=== PATIENT | male | born 1945 | race Caucasian/White ===

== ENCOUNTER → 2017-07-02 | Outpatient (CLI) | payer OTHER | LOC: BMCIMAGING 13:51 | PROVIDERS: ATTEND Physician Assistant Medical | DX: Z13.820 Encounter for screening for osteoporosis (principal); M85.80 Other specified disorders of bone density and structure, unspecified site; I65.23 Occlusion and stenosis of bilateral carotid arteries ==

== ENCOUNTER → 2017-07-15 | Outpatient (CLI) | payer OTHER ==
[~2017-07-15] MED LIST: IOPAMIDOL (ISOVUE 370) 100 ML BTL IV ONE
== END ==
LOC: FIMAGING 14:43
PROVIDERS: ATTEND Physician Assistant Medical
DX: I77.9 Disorder of arteries and arterioles, unspecified (principal); M50.30 Other cervical disc degeneration, unspecified cervical region
CPT/HCPCS: Q9967

== ENCOUNTER → 2017-10-27 | Outpatient (CLI) | payer OTHER ==
[~2017-10-27] MED LIST changes: -IOPAMIDOL (ISOVUE 370) 100 ML BTL IV ONE; +LIDOCAINE 1% 300 MG/30 ML SDV ONE
[2017-10-27 11:14] LABS: PROTEIN, CSF 57 mg/dL (12-60)
[2017-10-27 11:25] LABS: CSF APPEARANCE CLEAR (CLEAR); CSF COLOR COLORLESS (COLORLESS); WBC, CSF 0 /mm3 (0-5)
[2017-10-27 11:38] LABS: CSF APPEARANCE CLEAR (CLEAR); CSF COLOR COLORLESS (COLORLESS); WBC, CSF 0 /mm3 (0-5)
[2017-10-29 00:05] LABS: HSV 1 PCR, CSF Negative (Negative); HSV 2 PCR, CSF Negative (Negative)
[2017-10-29 15:31] LABS: VDRL CSF Negative (Negative)
[2017-10-30 13:15] LABS: INTERPRETATION 0 bands (<4); OLIGOCLONAL BANDING CSF 3 bands; OLIGOCLONAL BANDING SERUM 3 bands
[2017-11-01 12:22] LABS: ALBUMIN CSF 34.1 mg/dL (<=27.0); ALBUMIN SERUM 4900 mg/dL; CSF IGG INDEX 0.46 (<=0.85); IGG CSF 4.1 mg/dL (<=8.1); IGG SERUM 1250 mg/dL (767 - 1590); IGG/ALBUMIN CSF 0.12 (<=0.21); IGG/ALBUMIN SERUM 0.26 (<=0.40)
== END ==
LOC: FIMAGING 08:35
PROVIDERS: ATTEND Psychiatry & Neurology Neurology
PROC: 009U3ZX Drainage of Spinal Canal, Percutaneous Approach, Diagnostic (ICD-10-PCS; principal; 2017-10-27)
DX: R41.3 Other amnesia (principal); H53.9 Unspecified visual disturbance
CPT/HCPCS: 82784-90; 83916-90; 86592-90; 86735-90; 86765-90; 86787-90

== ENCOUNTER → 2017-11-17 | Outpatient (CLI) | payer OTHER ==
--- NOTE | 2017-11-19 15:28 | CPEEG ---
[f rep st] ELECTROENCEPHALOGRAM DATE OF STUDY: 11/17/2017 DATE OF INTERPRETATION: 11/19/2017. DATE OF STUDY: 11/17/2017. INTERPRETATION: Normal EEG during wakefulness and sleep. There were no potentially epileptogenic ab normalities present in the recording. REPORT: This EEG contains 9-10 Hz alpha activity over the posterior head regions. The background ac tivity was normal and symmetric. There was no abnormal activation at rest, during photic stimulation or hyperventilation. The patient became drowsy and fell asleep during the study. There was no abno rmal activation during drowsiness, sleep, or during times of arousal. /[id number]/MODL
== END ==
LOC: FCPNEURO 12:39
PROVIDERS: ATTEND Psychiatry & Neurology Neurology
DX: R41.3 Other amnesia (principal)

== ENCOUNTER → 2018-08-05 | Outpatient (CLI) | payer OTHER | LOC: FCPNEURO 20:00 | PROVIDERS: ATTEND Psychiatry & Neurology Sleep Medicine | DX: G47.31 Primary central sleep apnea (principal); G47.33 Obstructive sleep apnea (adult) (pediatric) ==

== ENCOUNTER 2018-09-22 06:10 | Emergency (ER) | payer OTHER ==
[2018-09-22 06:39] LABS: PLATELET COUNT 305 10^3/uL (150-400)
--- NOTE | 2018-09-22 06:39 | EDPHY ---
H & P Stated Complaint: AMS, , CONFUSED, STROKE HX Time Seen by Provider: 09/22/18 06:25 HPI/ROS: Chief Complaint: Confusion HPI: 73-year-old male with a history of a possible stroke a year and a half ago woke this morning and per his seemed very confused. They are in the process of working on changing his oxygen supplementation at night because he has a history of sleep apnea and has had documented hypoxia sleep studies. Patient has had multiple MRIs and scans which have not definitively showed evidence of stroke. The symptoms that he had in 2017 were and expressive aphasia in the morning. His physicians have attributed this to possible hypoxemia. This morning when he woke up he did not get of bed as usual. When his spoke with him he seemed confused. He did not have confused words as he has in the past. His states that he now seems improved. At baseline he is often not oriented to time. He did denies recent illness. No fevers or chills. He is awake alert and answering my questions. No chest pain. No shortness of breath. No fevers or chills. No cough. No nausea or vomiting. ROS: 10 systems were reviewed and were negative except those elements noted in the HPI. PMH: Possible CPA Social History: No smoking, no alcohol, no recreational drug use Family History: non-contributory Physical Exam: Gen: Awake, Alert, oriented to person and place and year HEENT: Nose: no rhinorrhea Eyes: PERRLA, EOMI Mouth: Moist mucosa Neck: Supple, no JVD Chest: nontender, lungs clear to auscultation Heart: S1, S2 normal, no murmur Abd: Soft, non-tender, no guarding Back: no CVA tenderness, no midline tenderness Ext: no edema, non-tender Skin: no rash Neuro: See NIH stroke score - Personal History Current Tetanus Diphtheria and Acellular Pertussis (TDAP): Yes - Medical/Surgical History Hx Asthma: No Hx Chronic Respiratory Disease: Yes Hx Diabetes: No Hx Cardiac Disease: No Hx Renal Disease: No Hx Cirrhosis: No Hx Alcoholism: No Hx HIV/AIDS: No Hx Splenectomy or Spleen Trauma: No Other PMH: "MINI STROKE jun 2017" - Social History Smoking Status: Never smoked Constitutional: Initial Vital Signs Temperature (C) 36.4 C 09/22/18 06:16 Heart Rate 85 09/22/18 06:16 Respiratory Rate 17 09/22/18 06:16 Blood Pressure 180/69 H 09/22/18 06:16 O2 Sat (%) 95 09/22/18 06:16 O2 Delivery Mode Room Air Allergies/Adverse Reactions: No Known Allergies Allergy (Verified 09/22/18 06:15) Home Medications: Medication Instructions Recorded Aspirin 81mg (*) 81 mg PO DAILY 10/22/17 Atorvastatin Calcium 20 mg PO DAILY 10/22/17 Coq-10 1 tab PO DAILY 10/22/17 Hyoscyamine 0.125 mg PO BID PRN 10/22/17 Lisinopril/Hctz 20/12.5MG 1 tab PO DAILY 10/22/17 Spiriva Inhaler (RX) 1 puffs PUFF DAILY 10/22/17 Vitamin D3 1 tab PO DAILY 10/22/17 Medical Decision Making - Diagnostics EKG Interpretation: ECG time 6:29 a.m., sinus rhythm with a rate of 77, normal axis, low-voltage but normal intervals, no acute ST or T-wave changes. Imaging Results: CT scan of the head is negative per Dr. Boyd. Chest x-ray shows some increased interstitial markings but no focal infiltrates or effusions per my interpretation. Imaging: Discussed imaging studies w/ housecalls nurse Radiologist, I viewed and interpreted images myself ED Course/Re-evaluation: 73-year-old male woke with confusion is morning. Patient's is now telling me that he got up in the middle the night to go to the bathroom and took his BiPAP mask off. When he went back to bed he did not put it back on. I suspect his brief episode of confusion upon waking was secondary to hypoxia. He is now return to baseline. His NIH score of 0. CT scan of the brain is negative. Chest x-ray shows some increased interstitial markings but he is not hypoxemic or tachycardic or tachypneic. Remainder of his laboratory evaluations are unremarkable. Plan will be to discharge with follow-up with primary care physician, return for any concerns. I have discussed this plan with the patient and his and they are in agreement. - Data Points Laboratory Results: Laboratory Results 09/22/18 06:22 09/22/18 06:22 09/22/18 09/22/18 09/22/18 06:28 06:24 06:22 WBC 11.28 10^3/uL H 10^3/uL (3.80-9.50) RBC 4.42 10^6/uL 10^6/uL (4.40-6.38) Hgb 14.4 g/dL g/dL (13.7-17.5) POC Hgb 15.0 gm/dL gm/dL (13.7-17.5) Hct 41.5 % % (40.0-51.0) POC Hct 44 % % (40-51) MCV 93.9 fL fL (81.5-99.8) MCH 32.6 pg pg (27.9-34.1) MCHC 34.7 g/dL g/dL (32.4-36.7) RDW 16.3 % H % (11.5-15.2) Plt Count 305 10^3/uL 10^3/uL (150-400) MPV 8.8 fL fL (8.7-11.7) Neut % (Auto) 47.8 % % (39.3-74.2) Lymph % (Auto) 36.0 % % (15.0-45.0) [place] % (Auto) 11.3 % % (4.5-13.0) Eos % (Auto) 3.0 % % (0.6-7.6) Baso % (Auto) 1.5 % % (0.3-1.7) Nucleat RBC Rel Count 0.0 % % (0.0-0.2) Absolute Neuts (auto) 5.39 10^3/uL 10^3/uL (1.70-6.50) Absolute Lymphs (auto) 4.06 10^3/uL H 10^3/uL (1.00-3.00) Absolute Monos (auto) 1.28 10^3/uL H 10^3/uL (0.30-0.80) Absolute Eos (auto) 0.34 10^3/uL 10^3/uL (0.03-0.40) Absolute Basos (auto) 0.17 10^3/uL H 10^3/uL (0.02-0.10) Absolute Nucleated RBC 0.00 10^3/uL 10^3/uL (0-0.01) Immature Gran % 0.4 % % (0.0-1.1) Immature Gran # 0.04 10^3/uL 10^3/uL (0.00-0.10) POC Sodium 140 mEq/L mEq/L (135-145) Sodium POC Potassium 3.7 mEq/L mEq/L (3.3-5.0) Potassium POC Chloride 103 mEq/L mEq/L (97-110) Chloride Carbon Dioxide Anion Gap POC BUN 22 mg/dL mg/dL (7-23) BUN Creatinine POC Creatinine 1.1 mg/dL mg/dL (0.7-1.3) Estimated GFR Glucose POC Glucose 111 mg/dL H mg/dL (70-100) Calcium POC Troponin I 0.00 ng/mL ng/mL (0.00-0.08) 09/22/18 06:22 WBC RBC Hgb POC Hgb Hct POC Hct MCV MCH MCHC RDW Plt Count MPV Neut % (Auto) Lymph % (Auto) [place] % (Auto) Eos % (Auto) Baso % (Auto) Nucleat RBC Rel Count Absolute Neuts (auto) Absolute Lymphs (auto) Absolute Monos (auto) Absolute Eos (auto) Absolute Basos (auto) Absolute Nucleated RBC Immature Gran % Immature Gran # POC Sodium Sodium 140 mEq/L mEq/L (135-145) POC Potassium Potassium 4.1 mEq/L mEq/L (3.3-5.0) POC Chloride Chloride 103 mEq/L mEq/L (97-110) Carbon Dioxide 26 mEq/l mEq/l (22-31) Anion Gap 11 mEq/L mEq/L (6-14) POC BUN BUN 22 mg/dL mg/dL (7-23) Creatinine 1.0 mg/dL mg/dL (0.7-1.3) POC Creatinine Estimated GFR > 60 Glucose 112 mg/dL H mg/dL (70-100) POC Glucose Calcium 9.8 mg/dL mg/dL (8.5-10.4) POC Troponin I Point of Care Test Results: Chemistry 09/22/18 09/22/18 06:28 06:24 POC Sodium 140 mEq/L mEq/L (135-145) POC Potassium 3.7 mEq/L mEq/L (3.3-5.0) POC Chloride 103 mEq/L mEq/L (97-110) POC BUN 22 mg/dL mg/dL (7-23) POC Creatinine 1.1 mg/dL mg/dL (0.7-1.3) POC Glucose 111 mg/dL H mg/dL (70-100) POC Troponin I 0.00 ng/mL ng/mL (0.00-0.08) ISTAT H&H 09/22/18 06:28 POC Hgb 15.0 gm/dL gm/dL (13.7-17.5) POC Hct 44 % % (40-51) Departure - Departure Disposition: Home, Routine, Self-Care Clinical Impression: Confusion Condition: Good Instructions: Altered Mental Status (ED) Additional Instructions: Follow up with primary care physician in 2-3 days for re-evaluation. Return to the emergency department for increasing confusion, numbness, weakness , difficulty speaking, falls, chest pain, shortness of breath, or any other concerns. Referrals: Yvrose Cantu MD [Primary Care Provider] - As per Instructions NIH Stroke Scale Date of Exam: 09/22/18 Time of Exam: 06:16 Level of Consciousness: Alert LOC Questions: Answers Both LOC Commands: Performs Both Correctly Best Gaze: Normal Visual: No Visual Loss Facial Palsy: Normal Motor Arm-Left: No Drift Motor Arm-Right: No Drift Motor Leg-Left: No Drift Motor Leg-Right: No Drift Limb Ataxis: Absent Sensory: Normal Best Language: No Aphasia Dysarthria: Normal Extinction and Inattention (Neglect): No Abnormality NIH Scale Score: 0
--- NOTE | 2018-09-22 07:15 | CPEKG ---
Test Reason : OPEN Blood Pressure : / mmHG Vent. Rate : 077 BPM Atrial Rate : 078 BPM P-R Int : 162 ms QRS Dur : 104 ms QT Int : 411 ms P-R-T Axes : 044 -04 -14 degrees QTc Int : 466 ms Sinus rhythm Low voltage, precordial leads Confirmed by Jj Hernández ([id number]) on 09/22/2018 7:15:33 AM Referred By: Confirmed By:Jj Hernández
[2018-09-22 09:14] VITALS: BP 135/85
== END 2018-09-22 07:28 | disposition home or self-care (01) ==
DX: R41.82 Altered mental status, unspecified (principal); Z86.73 Personal history of transient ischemic attack (TIA), and cerebral infarction without residual deficits; Z99.81 Dependence on supplemental oxygen
CPT/HCPCS: 82435-PO; 82565-PO; 82947-PO; 84132-PO; 84295-PO; 84484-PO; 84520-PO; 85014-PO

== ENCOUNTER → 2018-10-21 | Outpatient (CLI) | payer OTHER ==
[~2018-10-21] MED LIST changes: +IOPAMIDOL (ISOVUE-300) 100 ML BTL ONE; -LIDOCAINE 1% 300 MG/30 ML SDV ONE
== END ==
LOC: FIMAGING 13:47
PROVIDERS: ATTEND Internal Medicine
DX: N28.89 Other specified disorders of kidney and ureter (principal); K57.30 Diverticulosis of large intestine without perforation or abscess without bleeding; J84.10 Pulmonary fibrosis, unspecified; K44.9 Diaphragmatic hernia without obstruction or gangrene
CPT/HCPCS: Q9967

== ENCOUNTER 2018-11-17 12:26 | Inpatient (IN) | payer OTHER ==
[2018-11-17 13:30] LABS: PLATELET COUNT 292 10^3/uL (150-400)
[2018-11-17] MEDS ORDERED: NS 1,000 ML IV ONE (13:36)
--- NOTE | 2018-11-17 13:36 | EDPHY ---
H & P Stated Complaint: cough/weakness Time Seen by Provider: 11/17/18 12:50 HPI/ROS: CHIEF COMPLAINT: Cough, weakness HISTORY OF PRESENT ILLNESS: 73-year-old male with prior CVA and COPD presents with cough and weakness. Onset of a productive cough 3 days ago. Associated with gradually increasing generalized weakness, subjective fever and nasal congestion. Difficulty ambulating because of generalized weakness. Feels like he might fall. He has not fallen or hurt himself. Tolerating oral fluids and food well, but limited oral intake because of lack of appetite. He denies shortness of breath or chest pain. Received a flu vaccination this year. REVIEW OF SYSTEMS: complete 10 point ROS reviewed and is negative except for the noted elements in the HPI - Personal History Current Tetanus/Diphtheria Vaccine: Unsure - Medical/Surgical History Hx Asthma: No Hx Chronic Respiratory Disease: Yes Hx Diabetes: No Hx Cardiac Disease: No Hx Renal Disease: No Hx Cirrhosis: No Hx Alcoholism: No Hx HIV/AIDS: No Hx Splenectomy or Spleen Trauma: No Other PMH: "MINI STROKE jun 2017" - Social History Smoking Status: Never smoked Alcohol Use: Sober Drug Use: None Additional Social History: [facility] - Physical Exam Exam: General Appearance: Alert, pleasant and smiling, nontoxic-appearing Eyes: Pupils equal and round, no conjunctival pallor or injection ENT, Mouth: Mucous membranes slightly dry Neck: Normal inspection Respiratory: Normal respiratory rate, Lungs are clear to auscultation, no wheezing Cardiovascular: Regular rate and rhythm Gastrointestinal: Abdomen is soft and nontender Neurological: Alert, expressive aphasia, nonfocal exam Skin: Warm and dry, no rash Extremities: Nontender, no pedal edema Psychiatric: Mood and affect normal Constitutional: Initial Vital Signs Temperature (C) 36.9 C 11/17/18 12:34 Heart Rate 115 H 11/17/18 12:34 Respiratory Rate 25 H 11/17/18 12:34 Blood Pressure 121/77 H 11/17/18 12:34 O2 Sat (%) 92 11/17/18 12:34 O2 Delivery Mode Nasal Cannula O2 (L/minute) 2 Allergies/Adverse Reactions: No Known Allergies Allergy (Verified 11/17/18 12:36) Home Medications: Medication Instructions Recorded Aspirin [Aspirin 81mg (*)] 81 mg PO DAILY 10/22/17 Atorvastatin Calcium [Lipitor 20 20 mg PO DAILY 10/22/17 mg (*)] Cholecalciferol Vit D3 [Vitamin D3 2,000 units PO DAILY 10/22/17 2000 units tab (OTC)] Herbals/Supplements -Info Only 1 tab PO DAILY 10/22/17 Lisinopril/Hctz 20/12.5MG 1 ea PO DAILY 10/22/17 [Zestoretic/Prinzide 20/12.5MG (*)] Tiotropium Inhaler [Spiriva 1 inh IH DAILY 10/22/17 Inhaler] Multivitamins [Multivitamin (*)] 1 each PO DAILY 11/17/18 Medical Decision Making - Diagnostics Imaging Results: Chest x-ray independently reviewed by me reveals bilateral lower lobe infiltrates versus atelectasis Imaging: I viewed and interpreted images myself ED Course/Re-evaluation: This patient with COPD presents with cough and generalized weakness. Chest x- ray reviewed by me reveals bilateral infiltrates versus atelectasis. Clinical scenario suggests bilateral pneumonia. Blood cultures were drawn and Levaquin 750 mg IV given. A DuoNeb was given and Solu-Medrol 125 mg IV given. IV normal saline 1 L given for dehydration. He does not meet SIRS criteria. The hospitalist service was consulted for admission. Differential Diagnosis: Differential diagnosis includes though it is not limited to pneumonia, pneumothorax, pulmonary embolism, aortic dissection, pericarditis, acute coronary syndrome. - Data Points Laboratory Results: Laboratory Results 11/17/18 13:15 11/17/18 13:15 Medications Given: Albuterol (Proventil Neb) 3 ml IH Q2HRS PRN PRN Reason: Short of Breath/Dyspnea Stop: 05/16/19 15:12 Last Admin: 11/17/18 23:27 Dose: 3 ml Albuterol/Ipratropium (Duoneb) 3 ml IH QID STEPHANIE Stop: 05/16/19 15:59 Last Admin: 11/18/18 05:09 Dose: 3 ml Guaifenesin/Dextromethorphan (Robitussin Dm Oral Liquid) 10 ml PO Q4HRS PRN PRN Reason: Cough, Moderate Stop: 05/16/19 15:14 Last Admin: 11/18/18 07:33 Dose: 10 ml Sodium Chloride (Ns) 1,000 mls @ 200 mls/hr IV CONT STEPHANIE Stop: 11/18/18 20:14 Last Admin: 11/17/18 23:02 Dose: 1,000 mls Discontinued Medications Albuterol/Ipratropium (Duoneb) 3 ml IH EDNOW ONE Stop: 11/17/18 13:57 Last Admin: 11/17/18 14:13 Dose: 3 ml Sodium Chloride (Ns) 1,000 mls @ 0 mls/hr IV ONCE ONE; Wide Open PRN Reason: Protocol Stop: 11/17/18 13:37 Last Admin: 11/17/18 13:49 Dose: 1,000 mls Levofloxacin/Dextrose (Levaquin 750 Mg (Premix)) 150 mls @ 100 mls/hr IV EDNOW ONE PRN Reason: Protocol Stop: 11/17/18 15:23 Last Admin: 11/17/18 14:13 Dose: 150 mls Methylprednisolone Sodium Succinate (Solu-Medrol) 125 mg IVP EDNOW ONE Stop: 11/17/18 13:57 Last Admin: 11/17/18 14:13 Dose: 125 mg Departure - Departure Disposition: [facility] Inpatient Acute Clinical Impression: Pneumonia Qualifiers: Pneumonia type: due to unspecified organism Laterality: bilateral Lung location : lower lobe of lung Qualified Code(s): J18.1 - Lobar pneumonia, unspecified organism Condition: Fair
[2018-11-17] MEDS ORDERED: IPRATROPIUM/ALBUTEROL 3 ML DEYVIAL IH ONE (13:56)
[2018-11-17] MEDS ORDERED: methylPREDNISolone SOD SUCC 125 MG/2 ML VIAL IVP ONE (13:56)
[2018-11-17] MEDS ORDERED: ONDANSETRON DISINTEGRATING 4 MG TAB PO PRN (15:13)
[2018-11-17] MEDS ORDERED: ACETAMINOPHEN 325 MG TAB PO PRN (15:13)
[2018-11-17] MEDS ORDERED: ONDANSETRON 4 MG/2 ML VIAL IVP PRN (15:13)
[2018-11-17] MEDS ORDERED: ALBUTEROL 3 ML DEYVIAL IH PRN (15:13)
[2018-11-17] MEDS: IPRATROPIUM/ALBUTEROL 3 ML DEYVIAL IH SCH ×2 (15:36→20:48)
--- NOTE | 2018-11-17 15:45 | GHP ---
DATE OF ADMISSION: 11/17/2018 HISTORY OF PRESENT ILLNESS: The patient is a pleasant 73-year-old gentleman with a history of stroke , hypertension, and COPD, who presents with weakness and cough. He and his both developed a vir al upper respiratory infection earlier in the week. He has gotten worse. He has been coughing all n ight and getting progressively weaker. Normally, this is not a problem for him, and he is proficient in his ADLs. He was concerned he was going to fall down the stairs. When I speak to the patient, yovanny botello has had no nausea. No vomiting or diarrhea. He has had cough and shortness of breath. It is prod uctive of sputum that is yellow, green, brown, and clear. He has not been a smoker in more than 10 y ears. No PND, orthopnea, or lower extremity edema. He does not appear to be wheezing. REVIEW OF SYSTEMS: Complete 10-point review of systems conducted and negative except as noted in the HPI. PAST MEDICAL HISTORY: 1. 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 I assume this is a frontal lobe stroke. 2. Hypertension. 3. Hyperlipidemia. 4. COPD, on Spiriva. ALLERGIES: No known drug allergies. HOME MEDICATIONS: Lisinopril/hydrochlorothiazide, aspirin, atorvastatin, vitamin D3, multivitamin, t iotropium. SOCIAL HISTORY: He is a retired businessman. [place] [facility] [place] . FAMILY HISTORY: Parents . PHYSICAL EXAMINATION: PRESENTING VITAL SIGNS: Temperature 37, blood pressure 110/77, pulse 115, ramona athing 25 times a minute, 92% on room air and 93% on 2 L. GENERAL: No acute distress. HEENT: Scle sathish anicteric. Oropharynx clear. Mucous membranes are dry. NECK: Supple without lymphadenopathy o r JVD. LUNGS: Rhonchorous throughout with decreased air movement, without wheeze. HEART: S1, S2. Tachycardic. ABDOMEN: Soft, nontender, and nondistended. LOWER EXTREMITIES: Without edema. Calv es are nontender. SKIN: Without rash. NEUROLOGIC EXAM: The patient has occasional word-finding di fficulties. Moving all extremities symmetrically. LABORATORY DATA: Sodium 134, potassium 3.8, chloride 103, bicarbonate 20, BUN 29, creatinine 1.1 (th is is a little greater than his baseline). His baseline creatinine appears to be about 1. Influenza negative. Venous lactate is 1.4. White count 12, hematocrit 35, platelets are 292,000. Chest x-ray, interpreted by me, shows bilateral airspace disease consistent with diffuse pneumonia. I have discussed the case with Dr. Vane Owusu. ASSESSMENT AND PLAN: This is a 73-year-old gentleman with pneumonia and acute hypoxemic respiratory failure. 1. Pneumonia. Will treat his community-acquired pneumonia with levofloxacin. 2. Acute hypoxemic respiratory failure, secondary to airspace disease and underlying diagnosis of ch ronic obstructive pulmonary disease. 3. Hyponatremia. This is mild, probably explained by his hydrochlorothiazide therapy. We will hold that and volume resuscitate. 4. Tachycardia. This is in the setting of infection and mild hypovolemia. We will give him a coupl e liters of fluid over the next 10 or 12 hours and then follow. 5. History of stroke. The patient appears near his baseline as best I can tell and according to his . We will follow. 6. Weakness. This is secondary to his intercurrent infection. We will have Physical Therapy and Oc cupational Therapy see him. 7. Prophylaxis. Low molecular weight heparin. DISPOSITION: Inpatient. /[id number]/MODL
--- NOTE | 2018-11-17 15:53 | ASMTCMCOM ---
CM Note CM Note Notes: Chart reviewed for discharge planning. 73 year old male admitted via ED with c/o cough and progressive weakness afer symptoms of URI. He is admitted with a diagnosis of pneumonia. CM to follow for needs. Plan: TBD Date Signed: 11/17/2018 03:53 PM Electronically Signed By:Ira Jameson RN
[2018-11-17] MEDS: GUAIFENESIN/DM 10 ML UDCUP PO PRN ×2 (16:41→23:02)
[2018-11-17] MEDS: NS 1,000 ML IV SCH ×2 (16:42→23:02)
[2018-11-18] MEDS: GUAIFENESIN/DM 10 ML UDCUP PO PRN ×3 (03:42→15:20)
[2018-11-18] MEDS: IPRATROPIUM/ALBUTEROL 3 ML DEYVIAL IH SCH ×4 (05:09→20:50)
[2018-11-18 05:12] LABS: PLATELET COUNT 291 10^3/uL (150-400)
[2018-11-18] MEDS: MULTIVITAMINS 1 EACH TAB PO SCH (08:08)
[2018-11-18] MEDS: CHOLECALCIFEROL VIT D3 2,000 UNITS TAB/CAP PO SCH (08:08)
[2018-11-18] MEDS: ASPIRIN 81 MG CHEWABLE TAB PO SCH (08:08)
[2018-11-18] MEDS: ATORVASTATIN CALCIUM 20 MG TAB PO SCH (08:08)
[2018-11-18] MEDS: ENOXAPARIN 40 MG/0.4 ML SYR SC SCH (08:08)
[2018-11-18] MEDS ORDERED: Herbals/Supplements -Info Only PO SCH (09:00)
[2018-11-18] MEDS ORDERED: TIOTROPIUM INHALER 18 MCG/DOSE 5 DOSE/MDI IH SCH (09:00)
--- NOTE | 2018-11-18 14:35 | ASMTCMCOM ---
CM Note CM Note Notes: Patient plan of care reviewed in rounds. He is a 73 year old male s/p frontal lobe CVA with deficits, presented to ED with cough and increasing weakness. He is admitted for diagnosis of pneumonia. Normally lives independently with his . CM to follow for needs. Likely to need HHC per therapies. Plan: TBD Date Signed: 11/18/2018 02:35 PM Electronically Signed By:Ira Jameson RN
[2018-11-18] MEDS ORDERED: guaiFENesin/CODEINE PHOS 10 ML UDCUP PO PRN (16:10)
--- NOTE | 2018-11-18 16:10 | HOSPPROG ---
Hospitalist Progress Note Assessment/Plan: The patient is a 73-year-old male with PMH CVA with residual expressive aphasia/ cognitive deficits, hypertension, hyperlipidemia, COPD who was admitted for acute viral pneumonia and COPD exacerbation. This patient is new to me. Reviewed patient's chart/records for this visit. ASSESSMENT/PLAN: Acute community-acquired pneumonia, likely viral Acute COPD exacerbation, 2/2 above Acute hypoxemic respiratory failure, requiring O2 Sepsis/SIRS, 2/2 above Mild hyponatremia Generalized weakness -FU blood Cx. -Check resp panel. -O2, SVNs, CPT/pulm toilet, prn anti-tussives. -Levaquin. -Steroid. VTE prophylaxis: LMWH Code Status: Full code. Status: Inpatient for > 2 midnight stay. Disposition: [facility] with discharge to either home / [facility] or Acute Rehab in the next 1-3 days ____ SUBJECTIVE: Today the patient continues to have a dry cough. He feels generally weak. OBJECTIVE: Physical Exam: General: The patient is a male who is alert and in no acute distress. HEENT: normocephalic, extraocular movements intact, conjunctivae clear. Mucous membranes moist. Neck: trachea midline, no visible masses. CV: +S1/S2, RRR, no MRG. Resp: unlabored, CTAB no RRW. Abd: soft and nondistended. Bowel sounds present. Non tender throughout. Musculoskeletal: Normal muscle tone/bulk. Neuro: cranial nerves II XII grossly intact. Intact gross motor and sensory function. Psych: Appropriate mood and appropriate affect. Skin: No pallor. No petechiae. Heme/lymph: No peripheral edema at bilateral lower extremities. Labs/Imaging/Other Tests: Personally reviewed/interpreted. Chest [id number] interpreted: Bilateral patchy opacities/infiltrates. Objective: Vital Signs Temp Pulse Resp BP Pulse Ox 36.7 C 115 H 16 113/58 L 90 L 11/18/18 12:39 11/18/18 12:39 11/18/18 12:39 11/18/18 12:39 11/18/18 12:39 Laboratory Results 11/18/18 04:40 11/18/18 04:40 11/17/18 11/18/18 11/19/18 05:59 05:59 05:59 Intake Total 4605 Output Total 800 Balance 3805 - Time Spent With Patient Time Spent with Patient: greater than 35 minutes Time Spent with Patient: Greater than 35 minutes spent on this patients care, greater than 50% of time spent counseling, educating, and coordinating care regarding the above mentioned plan. ICD10 Worksheet Patient Problems: Problems Problem Status Onset Pneumonia Acute
[2018-11-18] MEDS: TIOTROPIUM INHALER 18 MCG/DOSE 5 DOSE/MDI IH SCH (20:51)
[2018-11-18] MEDS: BENZONATATE 100 MG CAP PO PRN (21:48)
[2018-11-19] MEDS: GUAIFENESIN/DM 10 ML UDCUP PO PRN ×2 (01:59→09:47)
[2018-11-19] MEDS: NYSTATIN SUSP 500000 UNIT/5 ML UD LIQ PO SCH ×4 (05:09→22:03)
[2018-11-19 05:14] LABS: PLATELET COUNT 302 10^3/uL (150-400)
[2018-11-19] MEDS: IPRATROPIUM/ALBUTEROL 3 ML DEYVIAL IH SCH ×2 (06:04→11:32)
[2018-11-19] MEDS: ENOXAPARIN 40 MG/0.4 ML SYR SC SCH (09:46)
[2018-11-19] MEDS: CHOLECALCIFEROL VIT D3 2,000 UNITS TAB/CAP PO SCH (09:46)
[2018-11-19] MEDS: ASPIRIN 81 MG CHEWABLE TAB PO SCH (09:46)
[2018-11-19] MEDS: MULTIVITAMINS 1 EACH TAB PO SCH (09:46)
[2018-11-19] MEDS: predniSONE 20 MG TAB PO SCH (09:46)
[2018-11-19] MEDS: ATORVASTATIN CALCIUM 20 MG TAB PO SCH (09:46)
--- NOTE | 2018-11-19 10:17 | PDMN ---
Medical Necessity Medical necessity: MCG M282 c PNA: with COPD exacerbation: 73 yr old with PMHX: CVA, HTN, COPD presents with weakness, cough, SOB, pts also with URI., req O2( ra 80's, req 2-4 L O2 > 90%) , tachycardia, ( 115) mild hyponatremia ( 134) , weakness. CXR shows bilateral airspace disease consistent with pna.,
[2018-11-19] MEDS: BENZONATATE 100 MG CAP PO PRN (13:33)
--- NOTE | 2018-11-19 14:15 | ASMTCMCOM ---
CM Note CM Note Notes: OT rec inpatient rehab, PT rec inpatient rehab vs. SNF. Hospitalist Jason was contacted to input inpatient rehab consult order, voicemail left for [facility] inpatient rehab. Spoke with pt and Allyn, they would ideally like pt to go home with [facility]. Allyn reports she is encouraged by pt progress over the last couple of days. Pt wants to see how he does with therapies tomorrow. They decline a SNF list. Allyn reports she works and if the recommendation is for pt to have 24/hr care they have no friends/family who can help but they can afford to hire private pay caregivers for about a week. CM to follow. D/c plan is TBD, likely home with [facility] PT/OT Date Signed: 11/19/2018 02:14 PM Electronically Signed By:DIVYA Mares
--- NOTE | 2018-11-19 14:56 | HOSPPROG ---
Hospitalist Progress Note Assessment/Plan: The patient is a 73-year-old male with PMH CVA with residual expressive aphasia/ cognitive deficits, hypertension, hyperlipidemia, COPD who was admitted for acute viral pneumonia and COPD exacerbation. ASSESSMENT/PLAN: Acute community-acquired pneumonia, 2/2 Coronovirus Acute COPD exacerbation, 2/2 above Acute hypoxemic respiratory failure, requiring O2 Sepsis/SIRS, 2/2 above - improving Mild hyponatremia Generalized weakness Acute urinary retention -multifactorial, likely medication AE + BPH -FU blood Cx. -Check resp panel. -O2, SVNs, CPT/pulm toilet, prn anti-tussives. -Levaquin. -Steroid. -Bladder scans and straight cath prn urinary retention. Will DC any meds that can contribute to urinary retention. VTE prophylaxis: LMWH Code Status: Full code. Status: Inpatient for > 2 midnight stay. [facility] w/ C tomorrow, if he needs continued PT. ____ SUBJECTIVE: Today the patient continues to have a dry cough. His strength has improved. OBJECTIVE: Physical Exam: General: The patient is a male who is alert and in no acute distress. HEENT: normocephalic, extraocular movements intact, conjunctivae clear. Mucous membranes moist. Neck: trachea midline, no visible masses. CV: +S1/S2, RRR, no MRG. Resp: unlabored, CTAB no RRW. Abd: soft and nondistended. Musculoskeletal: Normal muscle tone/bulk. Neuro: cranial nerves II - XII grossly intact. Intact gross motor and sensory function. Psych: Appropriate mood and appropriate affect. Skin: No pallor. No petechiae. Labs/Imaging/Other Tests: Personally reviewed/interpreted. Chest i-zlm-xqsarzsfni interpreted: Bilateral patchy opacities/infiltrates. Objective: Vital Signs Temp Pulse Resp BP Pulse Ox 36.6 C 109 H 20 108/70 93 11/19/18 11:14 11/19/18 11:38 11/19/18 11:38 11/19/18 11:14 11/19/18 11:38 Microbiology 11/18/18 15:15 Respiratory Panel (PCR) - Final Nasal, Sinus - Unspecified Coronavirus 229E Detected Laboratory Results 11/19/18 04:52 11/19/18 04:52 0111/19/18 11/20/18 05:59 05:59 05:59 Intake Total 4605 1900 Output Total 800 850 Balance 3805 1050 - Time Spent With Patient Time Spent with Patient: greater than 35 minutes Time Spent with Patient: Greater than 35 minutes spent on this patients care, greater than 50% of time spent counseling, educating, and coordinating care regarding the above mentioned plan. ICD10 Worksheet Patient Problems: Problems Problem Status Onset Pneumonia Acute
[2018-11-19] MEDS ORDERED: ALBUTEROL 3 ML DEYVIAL IH PRN (15:01)
[2018-11-19] MEDS: TIOTROPIUM INHALER 18 MCG/DOSE 5 DOSE/MDI IH SCH (19:28)
[2018-11-20 07:32] VITALS: BP 111/70
[2018-11-20] MEDS: CHOLECALCIFEROL VIT D3 2,000 UNITS TAB/CAP PO SCH (08:04)
[2018-11-20] MEDS: ATORVASTATIN CALCIUM 20 MG TAB PO SCH (08:04)
[2018-11-20] MEDS: predniSONE 20 MG TAB PO SCH (08:04)
[2018-11-20] MEDS: MULTIVITAMINS 1 EACH TAB PO SCH (08:04)
[2018-11-20] MEDS: ASPIRIN 81 MG CHEWABLE TAB PO SCH (08:04)
[2018-11-20] MEDS: NYSTATIN SUSP 500000 UNIT/5 ML UD LIQ PO SCH ×2 (08:05→15:36)
[2018-11-20] MEDS: BENZONATATE 100 MG CAP PO PRN ×2 (08:05→15:36)
[2018-11-20 08:33] LABS: PLATELET COUNT 394 10^3/uL (150-400)
--- NOTE | 2018-11-20 08:54 | PDHOMEO2F ---
Home Oxygen Face to Face Home Orders: I certify that a physician or a nurse practitioner or physician's assistant service manager has had a kkvx-kk-azcp encounter with this patient on the date of this order due to the diagnosis listed, which relates to the primary reason the patient requires home oxygen. Alternative treatments have been tried, or considered, and deemed ineffective. It is anticipated that supplemental oxygen will result in improvement with treatment. Home oxygen qualifying diagnosis: Pneumonia, COPD Home oxygen secondary diagnosis: COPD exacerbation SpO2 on room air (%): 87 Frequency of home oxygen needed: with activity, continuous, during sleep Home oxygen liters per minute: 2-3 Home oxygen delivery device: nasal cannula Concentrator: Yes E-tanks for mobility and back up: Yes If ordering portable O2, is the patient mobile in the home?: Yes I certify that, based on these findings, the home oxygen is medically necessary for this patient for the following length of time. Length of time home oxygen needed: 1 month
[2018-11-20] MEDS: ENOXAPARIN 40 MG/0.4 ML SYR SC SCH (10:45)
--- NOTE | 2018-11-20 13:20 | PDIAF ---
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 - Orders Services needed: Home Care, Registered Nurse, Certified Chief Operations Officer, Physical Therapy, Occupational Therapy Home Care Face to Face: I certify that this patient was under my care and that I had the required egwa-ky-pdfu encounter meeting the encounter requirements on the discharge day. My findings support the fact that the patient is homebound as defined in Home Care Face to Face Continued: CMS Chapter 7 Medicare Benefits Manual 30.1.1 , The condition of the patient is such that there exists a normal inability to leave home and consequently, leaving home would require a considerable and taxing effort. Isolation Type: Droplet Isolation Diet Recommendation: no restrictions on diet Diet Texture: Regular Texture Diet Equipment: Nebulizer machine, Home Oxygen - Follow Up Care Current Providers and Referrals: Yvrose Cantu MD [Primary Care Provider] - 3-5 days
--- NOTE | 2018-11-20 14:19 | ASMTLACE ---
LACE Length of stay for Answers: 3 days current admission Comorbidities - select Answers: Cerebrovascular disease all that apply (CVA, TIA, aneurysms, vasc ular dementia) Chronic pulmonary disease # of Emergency department Answers: 1-2 visits in the last 6 months Score: 7 Date Signed: 11/20/2018 02:19 PM Electronically Signed By:Ira Jameson RN
--- NOTE | 2018-11-20 14:25 | ASMTCMCOM ---
CM Note CM Note Notes: Patient plan of care reviewed in rounds. Met with patient and to re-emphasize that therapies believe he is a high fall risk and that they recommend 24 hour supervision. His spouse Allyn stated she feels he has much improvement over the last 3 days and doesn't feel that is indicated. I provided her with the [facility] Senior book and pointed out agencies that can provide care in addition to the HHC from [facility]. He will go home with oxygen as well. CM available should other needs arise. Plan: Home with HHC, oxygen and information on Loan closets for walker and agencies to provide additional care. Date Signed: 11/20/2018 02:25 PM Electronically Signed By:Ira Jameson RN
--- NOTE | 2018-11-20 16:41 | PDDCSUM ---
Discharge Summary Discharge Summary: Date of Admission: 11/17/2018 Date of Discharge: 11/20/2018 Discharge Diagnoses: Acute community-acquired pneumonia, 2/2 Coronovirus Acute COPD exacerbation, 2/2 above Acute hypoxemic respiratory failure, requiring O2 Sepsis/SIRS, 2/2 above - resolved Mild hyponatremia, resolved Generalized weakness, improved Acute urinary retention, resolved Admission Diagnoses: Pneumonia Acute hypoxemic respiratory failure Hyponatremia Tachycardia Weakness Consultants: None. 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 He and his had both developed a viral URI earlier in the week. However, his symptoms had worsened. He was found to have an acute pneumonia with COPD exacerbation secondary to coronavirus. Patient was put on Levaquin and steroid for COPD exacerbation. He was given breathing treatments and kept on oxygen. His breathing improved, but generalized weakness persisted. He was recommended to go to a usp facility or acute rehab, but he and his declined this option. Since he was not back at his baseline status with activities, he was recommended to continue physical therapy and occupational therapy at home. He was also ordered home oxygen. He is discharged home with under 24 hour supervision from his as well as home healthcare. Physical Exam: Gen - alert, comfortable, in NAD. MSK: ambulates with walker. Condition: Fair. Discharged to: Home with home healthcare. Pertinent tests/labs/imaging: Chest w-yex-ktlngs bibasilar opacities consistent with pneumonia. Respiratory panel PCR-coronavirus 229E. Medications: Please see med rec form. Resume home meds. New medications: Albuterol nebulizer, Robitussin DM as needed for cough, prednisone 40 mg daily for 4 more days, nebulizer machine ordered. Special instructions: Patient needs someone to be with him throughout the day. He cannot be unsupervised in case of falls. His PCP may evaluate patient and make changes to this plan. Occupational therapy: Recommend supervision when upright at all times. Recommend use of front wheeled walker. Be very careful when ambulating with Oxygen cord. Recommend seated supervised showers. No cooking at this time. Please ensure follow up with your primary doctor this week. Seek medical attention for fever/ chills, weakness, shortness of breath, confusion, dizziness. You are going home with home o2, using 3l NC continuously. You are going home with home health nursing, physical and occupational therapy. They will contact you at home for follow up. Follow up: Follow up with PCP Yvrose Cantu in 3-5 days. > 30 minutes of total time was spent on counseling and coordination of care for this patient's discharge.
--- NOTE | 2018-11-21 13:55 | ASDISCHSUM ---
Discharge Information Plan Status:Home with Home Health Medically Cleared to Leave:11/19/2018 Discharge Date:11/20/2018 04:06 PM D/C Disposition:Home Health Service ADT D/C Disposition:Home Health Service Projected Discharge Date:11/20/2018 11:00 AM Transportation at D/C: Discharge Delay Reason: Follow-Up Date:11/20/2018 11:00 AM Discharge Slot: Final Diagnosis: Placement Information Referral Type:*Home Health Care Services Referral ID:[id number] Provider Name:[facility] Address 1:[address] [place] [address] Address 2: City:[place] Selection Factors: State:[place] Patient Contact Information Contact Name:REED Relationship: Address:[address] City:[place] Alternate Phone: State/Zip Code:[place] [address] Email: Financial Information Financial Class:HMO and PPO Plans Primary Plan Desc:[facility] Primary Plan Number:[id number] Secondary Plan Desc: Secondary Plan Number: Assessment Information LACE LACE Length of stay for Answers: 3 days current admission Comorbidities - select Answers: Cerebrovascular disease all that apply (CVA, TIA, aneurysms, vasc ular dementia) Chronic pulmonary disease # of Emergency department Answers: 1-2 visits in the last 6 months Score: 7 Date Signed: 11/20/2018 02:19 PM Electronically Signed By:Ira Jameson RN [facility] CM Progress Note CM Note CM Note Notes: Chart reviewed for discharge planning. 73 year old male admitted via ED with c/o cough and progressive weakness afer symptoms of URI. He is admitted with a diagnosis of pneumonia. CM to follow for needs. Plan: TBD Date Signed: 11/17/2018 03:53 PM Electronically Signed By:Ira Jameson RN [facility] CM Progress Note CM Note CM Note Notes: Patient plan of care reviewed in rounds. He is a 73 year old male s/p frontal lobe CVA with deficits, presented to ED with cough and increasing weakness. He is admitted for diagnosis of pneumonia. Normally lives independently with his . CM to follow for needs. Likely to need [facility] per therapies. Plan: TBD Date Signed: 11/18/2018 02:35 PM Electronically Signed By:Ira Jameson RN [facility] CM Progress Note CM Note CM Note Notes: OT rec inpatient rehab, PT rec inpatient rehab vs. SNF. Hospitalist Jason was contacted to input inpatient rehab consult order, voicemail left for [facility] inpatient rehab. Spoke with pt and Allyn, they would ideally like pt to go home with HHC. Allyn reports she is encouraged by pt progress over the last couple of days. Pt wants to see how he does with therapies tomorrow. They decline a SNF list. Allyn reports she works and if the recommendation is for pt to have 24/hr care they have no friends/family who can help but they can afford to hire private pay caregivers for about a week. CM to follow. D/c plan is TBD, likely home with HHC PT/OT Date Signed: 11/19/2018 02:14 PM Electronically Signed By:DIVYA Mares [facility] CM Progress Note CM Note CM Note Notes: Patient plan of care reviewed in rounds. Met with patient and to re-emphasize that therapies believe he is a high fall risk and that they recommend 24 hour supervision. His spouse Allyn stated she feels he has much improvement over the last 3 days and doesn't feel that is indicated. I provided her with the [facility] Senior book and pointed out agencies that can provide care in addition to the HHC from [facility]. He will go home with oxygen as well. CM available should other needs arise. Plan: Home with HHC, oxygen and information on Loan closets for walker and agencies to provide additional care. Date Signed: 11/20/2018 02:25 PM Electronically Signed By:Ira Jameson RN Intervention Information Intervention Type:*IM-Signed Date of Service:11/20/2018 02:53 PM Patient Type:Inpatient Staff Member:SCOTT Jameson, Ira Hours: Discipline: Severity: Comment:
== END 2018-11-20 16:06 | disposition home health service (06) | DRG 871 ==
LOC: OBSVTOIN 14:00 → F1N 15:19
PROVIDERS: ADMIT Internal Medicine; ATTEND Internal Medicine
DX: A41.89 Other specified sepsis (principal); J12.89 Other viral pneumonia; B97.29 Other coronavirus as the cause of diseases classified elsewhere; J44.1 Chronic obstructive pulmonary disease with (acute) exacerbation; J44.0 Chronic obstructive pulmonary disease with (acute) lower respiratory infection; J96.01 Acute respiratory failure with hypoxia; E87.1 Hypo-osmolality and hyponatremia; R33.9 Retention of urine, unspecified; I69.320 Aphasia following cerebral infarction; I69.319 Unspecified symptoms and signs involving cognitive functions following cerebral infarction; I10 Essential (primary) hypertension; E78.5 Hyperlipidemia, unspecified
CPT/HCPCS: 96365; 97110-GP; 97116-GP; 97161-GP; 97166-GO; 97530-GP; 97535-GO; J1650; J1956; J2930; J7512; J7613

== ENCOUNTER → 2018-12-30 | Outpatient (CLI) | payer OTHER | LOC: BMCIMAGING 13:37 | DX: J98.4 Other disorders of lung (principal); J18.9 Pneumonia, unspecified organism ==

== ENCOUNTER → 2019-03-03 | Outpatient (CLI) | payer OTHER | LOC: FIMAGING 14:04 | PROVIDERS: ATTEND Internal Medicine | DX: I65.23 Occlusion and stenosis of bilateral carotid arteries (principal) ==

== ENCOUNTER → 2019-05-12 | Outpatient (CLI) | payer OTHER | LOC: FIMAGING 15:21 ==